=== PATIENT | female | born 1985 ===

== ENCOUNTER 2017-11-02 18:03 | Emergency (ER) | payer OTHER, BC ==
[2017-11-02 18:07] VITALS: BP 141/84; PULSE 99; RESP 16; TEMP 99; O2SAT 98
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
== END 2017-11-02 19:59 | disposition home or self-care (01) ==
LOC: H.ER 18:03
DX: Z04.1 Encounter for examination and observation following transport accident (principal); V43.52XA Car driver injured in collision with other type car in traffic accident, initial encounter; W22.11XA Striking against or struck by driver side automobile airbag, initial encounter; Y92.410 Unspecified street and highway as the place of occurrence of the external cause